=== PATIENT | male | born 1960 | race African-American/Black ===

== ENCOUNTER 2018-11-24 14:02 | Emergency (ER) | payer OTHER ==
[~2018-11-24] VITALS: Ht 167.6 cm; Wt 65.9 kg
[~2018-11-24 14:02] MED LIST: NOCURR
[2018-11-24 14:05] VITALS: BP 120/83
== END 2018-11-24 15:05 | disposition left against medical advice (07) ==
LOC: EMS 14:04
DX: F10.129 Alcohol abuse with intoxication, unspecified (principal)

== ENCOUNTER 2018-12-05 18:23 | Emergency (ER) | payer OTHER ==
[2018-12-05] MEDS ORDERED: SLOWK8 PO (19:58)
[2018-12-05] MEDS ORDERED: ASPI81 PO (19:58)
[2018-12-05] MEDS ORDERED: MAGN250T2 PO (19:58)
[2018-12-05] MEDS ORDERED: AMLO-511 PO (19:58)
== END 2018-12-05 19:13 | disposition left against medical advice (07) ==
LOC: EMS 18:23
DX: F10.10 Alcohol abuse, uncomplicated (principal); Z53.21 Procedure and treatment not carried out due to patient leaving prior to being seen by health care provider

== ENCOUNTER 2018-12-05 19:43 | Emergency (ER) | payer OTHER ==
[~2018-12-05] VITALS: Ht 167.6 cm; Wt 68.2 kg
[2018-12-05] MEDS ORDERED: SLOWK8 PO (19:58)
[2018-12-05] MEDS ORDERED: MAGN250T2 PO (19:58)
[2018-12-05] MEDS ORDERED: ASPI81 PO (19:58)
[2018-12-05] MEDS ORDERED: AMLO-511 PO (19:58)
[2018-12-05 22:50] VITALS: BP 129/81
== END 2018-12-05 23:02 | disposition home or self-care (01) ==
LOC: EMS 19:44
DX: F10.10 Alcohol abuse, uncomplicated (principal); I11.9 Hypertensive heart disease without heart failure; Z79.82 Long term (current) use of aspirin; Y90.8 Blood alcohol level of 240 mg/100 ml or more
CPT/HCPCS: 36415; 99283; G0480